=== PATIENT | male | born 1985 | race Caucasian/White ===

== ENCOUNTER 2024-02-28 21:43 | Emergency (ER) | payer BC, SELFPAY ==
[2024-02-28 21:43] VITALS: BP 150/83; PULSE 72; RESP 15; TEMP 36.7; O2SAT 96; BMI 28.1
--- NOTE | 2024-02-28 21:54 | ED.VIS.DENTA ---
HPI History of Present Illness Chief Complaint: Dental Informant: patient Onset/Context/Timing Onset: Today Context: Sudden Onset Timing: Continuous Quality: Sharp Location: Right upper molars Worsened by: Nothing Relieved by: - (Nothing) Associated Symptoms Assocated Symptom - Dental: face swelling; Negative for fever, jaw swelling, cold sensitivity or hot sensitivity Narrative Narrative: Patient presents with right upper dental pain that began today. Patient states it is gradually getting worse. Patient describes the pain as sharp. Patient states nothing makes it worse. Patient states he has been taking Tylenol and ibuprofen with no improvement. Patient states he has also been using Orajel with no improvement. Patient denies any fevers. Patient states he feels like his face is starting to get swollen. Patient denies any hot or cold sensitivity. PFSH PFSH Medical History Arthritis Emotional problems Gastrointestinal problem GERD (gastroesophageal reflux disease) Headache Hearing problem Hormone deficiency Home Medications trazodone 150 mg tablet 300 mg PO QHS 02/02/24 [History Last Taken Unknown] penicillin V potassium 500 mg tablet 500 mg PO 4X/DAY #40 tabs 02/28/24 [Rx Last Taken Unknown] Allergy/AdvReac Type Severity Reaction Status Date / Time No Known Allergies Allergy Verified 02/28/24 21:47 Family History (Updated 02/02/24 @ 09:28 by Charleen Diallo) Other Alcoholism Depression Hypertension Psychiatric care Surgical History no surgical history no surgical history Social History Smoking Status: Never smoker alcohol intake: never substance use type: does not use what type of physical activity do you participate in: weight training frequency: 5-6 times per week ROS ROS ED Constitutional Constitutional ED: Denies chills or fever(s) Eyes Eyes: Denies blurry vision or change in vision ENT ENT ED: Denies rhinorrhea or sore throat Cardiovascular Cardiovascular: Denies chest pain or palpitations Respiratory/Chest Respiratory/Chest: Denies cough or dyspnea Gastrointestinal Gastrointestinal: Denies nausea or vomiting Genitourinary Genitourinary ED: Denies dysuria or hematuria Musculoskeletal Musculoskeletal: Denies back pain or neck pain Integumentary Denies abscess or rash Neurologic Neurologic: Denies headache(s) or weakness Allergic/Immunologic Allergic/Immunologic ED: Denies mouth swelling or urticaria EXAM Physical Exam Const Vital Signs: 02/28/24 21:43 Temperature 98.0 F Temperature Source Temporal Pulse Rate 72 Respiratory Rate 15 Blood Pressure 150/83 H Blood Pressure Mean 105 Pulse Ox 96 Oxygen Delivery Method Room Air Positive well nourished and well developed General Appearance ED: well developed and NAD HEENT HEENT Narrative: There are dental caries noted over the right upper first and second molars. There is some mild gingival edema around these teeth. There is some tenderness over these teeth. There is no discharge or drainage. There is also a small dental carry noted over the left upper second premolar. There is no tenderness to palpation over this tooth. There is no sublingual edema or erythema. There is no evidence of Asad's angina. Oral mucosa is pink and moist. Oropharynx is clear. Airway is patent. Mouth ED: Yes oral and palatal mucosa normal Mouth: oral and palatal mucosa normal Teeth and Gingiva: abnormal tooth and associated gingiva Positive for tenderness, caries and gingiva abnormal Positive for gingival edema Throat: posterior oropharynx normal Neck supple and no JVD General: Negative for anterior neck swelling or submandibular swelling Lymph Lymphatic: no lymphadenopathy noted Neuro oriented x3, CN's II-XII intact bilaterally, moves all extremities, no focal motor deficits and no sensory deficits noted Sensorium / Orientation: alert Motor Exam: strength 5/5 throughout MDM MDM MDM Narrative Medical decision making narrative: Patient was advised that these are infected dental caries. Patient was given a prescription for Pen-Vee K. Patient was instructed to continue Tylenol and ibuprofen as needed for pain. Patient was also instructed to use Orajel as needed for pain. Patient was instructed to follow-up with a dentist in 5 to 7 days for further evaluation and treatment. Patient understood and was agreeable with the plan. All questions were answered. Discharge Plan Triage Chief Complaint: Dental ED Provider: Rafael Garvin Dx/Rx/DC Orders Clinical Impression: Infected dental caries, ADHD Instructions: ED Dental Pain, ED Dental Cavity Prescriptions: New penicillin V potassium 500 mg tablet 500 mg PO 4X/DAY Qty: 40 0RF No Action trazodone 150 mg tablet 300 mg PO QHS Primary Care Provider: Alesia London Referrals: Alesia London [Primary Care Provider] - 5-7 Days Disposition Disposition: Home, Self Care
[2024-02-28] MEDS: Penicillin Vk 250 MG Tablet 500 MG PO (22:07)
[2024-02-28] MEDS: Acetaminophen 500 MG Tablet 1000 MG PO (22:07)
[2024-02-28 22:11] VITALS: BP 150/83; PULSE 72; RESP 15; TEMP 36.7; O2SAT 96
== END 2024-02-28 22:23 | disposition home or self-care (01) ==
PROVIDERS: Emergency Provider Emergency Medicine; Visit Provider Emergency Medicine
DX: K02.9 Dental caries, unspecified (principal); F90.9 Attention-deficit hyperactivity disorder, unspecified type; K21.9 Gastro-esophageal reflux disease without esophagitis; Z79.899 Other long term (current) drug therapy
CPT/HCPCS: 99282